=== PATIENT | female | born 1980 | race Caucasian/White ===

== ENCOUNTER 2017-12-19 02:21 | Emergency (ER) | END 2017-12-19 04:20 | disposition home or self-care (01) ==

== ENCOUNTER 2018-02-21 13:20 | Inpatient (IN) | END 2018-02-23 15:20 | disposition home or self-care (01) | DRG 775 ==

== ENCOUNTER 2019-04-10 20:23 | Emergency (ER) | payer MEDICAID, OTHER ==
[~2019-04-10] VITALS: Ht 154.9 cm; Wt 66.7 kg
[~2019-04-10 20:23] MED LIST: AMOX500C2 PO; NAPR-985 PO
[2019-04-10 20:30] VITALS: Ht 154.9 cm; Wt 66.7 kg
[2019-04-11 00:52] VITALS: BP 114/73; PULSE 72; RESP 18
== END 2019-04-11 00:52 | disposition home or self-care (01) ==
LOC: FTE 20:23
DX: K08.89 Other specified disorders of teeth and supporting structures (principal)
CPT/HCPCS: 99283